=== PATIENT | male | born 1960 | race Caucasian/White ===

== ENCOUNTER 2021-11-26 11:20 | Emergency (ER) | payer MEDICARE, OTHER ==
[~2021-11-26 11:20] MED LIST: ABILIFY10 MG PO; ARTHRITIS PAIN150 GM TOP; ASPIRIN CHEWABL81 MG PO; BUSPIRONE HCL15 MG PO; CARAFATE1 GM PO; CYMBALTA 30MG C30 MG PO; GABAPENTIN600 MG PO; HYDROCODON-ACE1 EAC2 PO; IRON325 M1 PO; LIPITOR 10MG TA10 MG PO; MEGESTROL800 MG/20 PO; NEURONTIN300 MG PO; OXYCODONE-ACET1 EAC1 PO; PERCOCET 5-3251 EACH PO; PLAVIX75 MG PO; PRILOSEC20 MG PO
== END 2021-11-26 14:25 | disposition left against medical advice (07) ==
LOC: FER 11:20
DX: S06.5X0A Traumatic subdural hemorrhage without loss of consciousness, initial encounter (principal); Z53.29 Procedure and treatment not carried out because of patient's decision for other reasons; Z86.73 Personal history of transient ischemic attack (TIA), and cerebral infarction without residual deficits; Z79.82 Long term (current) use of aspirin; Z79.02 Long term (current) use of antithrombotics/antiplatelets; V49.9XXA Car occupant (driver) (passenger) injured in unspecified traffic accident, initial encounter
CPT/HCPCS: 70450; 72125

== ENCOUNTER 2021-12-15 22:09 | Emergency (ER) | payer MEDICARE, OTHER | END 2021-12-16 00:52 | disposition home or self-care (01) | LOC: FER 22:09 | DX: R51.9 Headache, unspecified (principal); F17.200 Nicotine dependence, unspecified, uncomplicated | CPT/HCPCS: 70450; 72125; J0780; J1200; J1885; J7030 ==

== ENCOUNTER 2021-12-21 22:15 | Emergency (ER) | payer MEDICARE, OTHER ==
[2021-12-22] MEDS ORDERED: NORCO 5-325 TA1 EACH PO (05:23)
== END 2021-12-22 05:53 | disposition home or self-care (01) ==
LOC: FER 22:15
DX: S06.5X0D Traumatic subdural hemorrhage without loss of consciousness, subsequent encounter (principal); F17.210 Nicotine dependence, cigarettes, uncomplicated
CPT/HCPCS: 70450; J1170; J2270; J2405; J7030